=== PATIENT | male | born 1990 | race Caucasian/White ===

== ENCOUNTER 2017-02-20 03:26 | Emergency (ER) | payer SELFPAY ==
[2017-02-20] MEDS ORDERED: PROPARACAINE HCL 0.5% OPTH OP ONE (03:35)
[2017-02-20] MEDS: NEOMY SULF/POLYMYX B SULF/HC OPTH SUSP OP ONE ×2 (03:38→03:55)
[2017-02-20] MEDS ORDERED: DEXAMETHASONE OP ONE (03:50)
[2017-02-20] MEDS ORDERED: TOBRAMYCIN OP ONE (03:50)
[2017-02-20] MEDS ORDERED: HYDROcodone /APAP 5/325 1 EACH TABLET PO ONE (04:00)
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
[2017-02-20 04:58] VITALS: BP 134/73
== END 2017-02-20 04:15 | disposition home or self-care (01) ==
LOC: ED 03:26
DX: T26.42XA Burn of left eye and adnexa, part unspecified, initial encounter (principal); T26.41XA Burn of right eye and adnexa, part unspecified, initial encounter; X08.8XXA Exposure to other specified smoke, fire and flames, initial encounter; Y93.9 Activity, unspecified; Y99.9 Unspecified external cause status
CPT/HCPCS: A9270 ×2